=== PATIENT | female | born 1950 | race Asian ===

== ENCOUNTER 2016-11-17 02:18 | Emergency (ER) | payer OTHER ==
[~2016-11-17] VITALS: Ht 154.9 cm; Wt 75.0 kg
[2016-11-17 02:44] VITALS: Ht 154.9 cm; Wt 75.0 kg
[2016-11-17] MEDS ORDERED: FAMOTIDINE 20 MG INJ IV STA (03:38)
[2016-11-17] MEDS ORDERED: ONDANSETRON 4 MG INJ IV STA (03:38)
[2016-11-17] MEDS ORDERED: SOD CHLORIDE 0.9% 1,000 ML IV STA (03:38)
--- NOTE | 2016-11-17 03:44 | ERD ---
ER Documentation Chief Complaint Date/Time DATE: 11/17/16 TIME: 03:42 Chief Complaint abdominal pain/vomiting/diarrhea since last night HPI Patient is a 66-year-old female who presents with sudden onset, intermittent, cramping, migratory abdominal pain for the last 4 hours. She reports having approximately 5-6 episodes of vomiting and diarrhea. The vomit was nonbloody and nonbilious. She denies fever. Multiple family members have had similar symptoms over the last couple days. Patient denies recent travel. ROS All systems reviewed and are negative except as per history of present illness. Medications Home Meds Active Scripts Ondansetron Hcl* (Zofran*) 4 Mg Tablet, 4 MG PO Q8H Y for NAUSEA AND/OR VOMITING , #15 TAB Prov:ELLA DAVIES MD 11/17/16 Cephalexin* (Keflex*) 500 Mg Capsule, 500 MG PO QID for 7 Days, CAP Prov:ELLA DAVIES MD 11/17/16 Reported Medications Multivitamins* (Theragran*) 1 Tab Tab, 1 TAB PO DAILY, TAB 11/17/16 Acetaminophen* (Acetaminophen*) 500 MG Extra Strength Tablet, 500 MG PO Q4H Y for PAIN AND OR ELEVATED TEMP, TAB 11/17/16 Naproxen* (Naproxen*) 220 Mg Capsule, 220 MG PO BID, CAP 11/17/16 Simvastatin* (Zocor*) 40 Mg Tablet, 40 MG PO QHS, #30 TAB 11/17/16 Calcium Carbonate/Vitamin D3 (OYSTER SHELL 500 MG + VIT D TB) 1 Each Tablet, 1 EACH PO, TAB 11/17/16 Ergocalciferol (Vitamin D) Unknown Strength Capsule, PO DAILY, CAP 11/17/16 Aspirin* (Aspirin* Chew) 81 Mg Tab.chew, 81 MG PO DAILY, TAB.CHEW 11/17/16 Ranitidine Hcl* (Ranitidine Hcl*) 150 Mg Tablet, 150 MG PO HS, #30 TAB 11/17/16 Levothyroxine Sodium* (Levothyroxine Sodium*) Unknown Strength Tablet, PO BEFORE BREAKFAST, #30 TAB 11/17/16 Metformin Hcl* (Metformin Hcl* ER) 500 Mg Tab.sr.24h, 500 MG PO BID, #30 TAB 11/17/16 Insulin Glargine* (Lantus*) 100 Unit/Ml Soln, 30 UNIT SC DAILY, #1 VIAL 11/17/16 Allergies Allergies: Coded Allergies: No Known Drug Allergies (Verified Allergy, Unknown, 11/17/16) PMhx/Soc Past medical history: Diabetes mellitus Past surgical history: Hysterectomy, left shoulder Social history: Denies tobacco or alcohol History of Surgery: Yes (LT SHOULDER; HYSTERECTOMY) Anesthesia Reaction: No Hx Neurological Disorder: No Hx Respiratory Disorders: No Hx Cardiac Disorders: No Hx Psychiatric Problems: No Hx Miscellaneous Medical Probl: Yes (DIABETES) Hx Alcohol Use: No Hx Substance Use: No Hx Tobacco Use: No Smoking Status: Never smoker FmHx Family History: No coronary disease, No diabetes Physical Exam Vitals Vital Signs Date Time Temp Pulse Resp B/P Pulse Ox O2 Delivery O2 Flow Rate FiO2 11/17/16 05:03 91 20 132/70 98 Room Air 11/17/16 03:34 95 20 124/66 98 Room Air 11/17/16 02:44 98.0 98 20 124/63 98 Physical Exam Const: Alert, no acute distress Head: Atraumatic Eyes: Normal Conjunctiva, no pallor, no icterus ENT: Normal External Ears, Nose and Mouth. Tacky mucous membranes Neck: Full range of motion..~ No meningismus. Resp: Clear to auscultation bilaterally, no wheezes, no rales Cardio: Regular rate and rhythm, no murmurs Abd: Soft, non tender, non distended. No rebound or guarding Skin: No petechiae or rashes Back: No midline or flank tenderness Ext: No cyanosis, or edema Neur: Awake and alert Psych: Normal Mood and Affect Result Diagram: 11/17/16 0355 11/17/16 0355 Results 24 hrs Laboratory Tests Test 11/17/16 03:55 11/17/16 04:03 White Blood Count 20.610^3/ul Red Blood Count 4.3310^6/ul Hemoglobin 13.2g/dl Hematocrit 39.9% Mean Corpuscular Volume 92.1fl Mean Corpuscular Hemoglobin 30.5pg Mean Corpuscular Hemoglobin Concent 33.1g/dl Red Cell Distribution Width 12.5% Platelet Count 85904^3/UL Mean Platelet Volume 10.0fl Neutrophils % 89.1% Lymphocytes % 3.8% Monocytes % 6.0% Eosinophils % 0.7% Basophils % 0.1% Neutrophils # 18.310^3/ul Lymphocytes # 0.810^3/ul Monocytes # 1.210^3/ul Eosinophils # 0.110^3/ul Basophils # 0.010^3/ul Nucleated Red Blood Cells # 0.010^3/ul Sodium Level 149mmol/L Potassium Level 4.2mmol/L Chloride Level 105mmol/L Carbon Dioxide Level 28mmol/L Anion Gap 20 Blood Urea Nitrogen 17mg/dl Creatinine 0.84mg/dl Glucose Level 174mg/dl Calcium Level 9.3mg/dl Total Bilirubin 0.4mg/dl Direct Bilirubin 0.00mg/dl Indirect Bilirubin 0.4mg/dl Aspartate Amino Transf (AST/SGOT) 20IU/L Alanine Aminotransferase (ALT/SGPT) 39IU/L Alkaline Phosphatase 106IU/L Total Protein 7.9g/dl Albumin 4.2g/dl Globulin 3.70g/dl Albumin/Globulin Ratio 1.13 Lipase 95U/L Urine Color YELLOW Urine Clarity SLIGHTLY CLOUDY Urine pH 5.0 Urine Specific Darling 1.024 Urine Ketones NEGATIVEmg/dL Urine Nitrite NEGATIVEmg/dL Urine Bilirubin NEGATIVEmg/dL Urine Urobilinogen NEGATIVEmg/dL Urine Leukocyte Esterase 1+Destinee/ul Urine Microscopic RBC 1/HPF Urine Microscopic WBC 14/HPF Urine Squamous Epithelial Cells FEW/HPF Urine Bacteria FEW/HPF Urine Mucus FEW/HPF Urine Hemoglobin NEGATIVEmg/dL Urine Glucose 1+mg/dL Urine Total Protein 2+mg/dl Current Medications Medications (Trade) Dose Ordered Sig/Nicky Route PRN Reason Start Time Stop Time Status Last Admin Dose Admin Sodium Chloride (NS) 1,000 ml @ 1,000 mls/hr Q1H STAT IV 11/17/16 03:38 11/17/16 04:37 DC 11/17/16 04:05 Ondansetron HCl (Zofran Inj) 4 mg ONCE STAT IV 11/17/16 03:38 11/17/16 03:41 DC 11/17/16 04:05 Famotidine 20 mg 20 mg ONCE STAT IV 11/17/16 03:38 11/17/16 03:41 DC 11/17/16 04:05 Ceftriaxone Sodium (Rocephin) 50 ml @ 100 mls/hr ONCE ONCE IVPB 11/17/16 05:30 11/17/16 05:45 DC 11/17/16 05:15 Procedures/MDM MDM: Patient is a 66-year-old female who presents with vomiting and diarrhea with mild cramping and poorly localized abdominal discomfort for several hours. Multiple family members have similar symptoms. The patient is afebrile, has benign abdominal exam. She is given IV fluids, Pepcid, and Zofran, and her symptoms almost completely resolved. On reassessment, the patient did state that she is experiencing dysuria. Her urinalysis does have signs of UTI. Urine culture was sent, and the patient was given 1 g of ceftriaxone. She will be discharged with Keflex and Zofran. The patient did have significant leukocytosis, but did not have signs of sepsis. Repeat abdominal exam was completely benign and the patient stated that her abdominal pain had completely resolved. Her leukocytosis may be related to UTI and is nonspecific. The patient is a diabetic, but has no signs of significant hyperglycemia or DKA. Departure Diagnosis: Primary Impression: Gastroenteritis Additional Impression: Urinary tract infection Urinary tract infection type: site unspecified Hematuria presence: without hematuria Qualified Code: N39.0 - Urinary tract infection without hematuria, site unspecified Condition: ELLA Solorzano MD Nov 17, 2016 03:44
[2016-11-17 04:15] LABS: ADD SCAN DIFF NO
[2016-11-17 04:25] LABS: ADD UMIC YES; UR ASCORBIC ACID NEGATIVE (NEGATIVE); UR BACTERIA FEW /HPF (NONE SEEN); UR BILIRUBIN (Dip) NEGATIVE (NEGATIVE); UR BLOOD (Dip) NEGATIVE (NEGATIVE); UR CLARITY SLIGHTLY CLOUDY (CLEAR); UR COLOR YELLOW (YELLOW); UR GLUCOSE (Dip) 1+ mg/dL (NEGATIVE); UR KETONES (Dip) NEGATIVE (NEGATIVE); UR LEUKOCYTE ESTERASE (Dip) 1+ Leu/ul (NEGATIVE); UR MUCUS FEW /HPF (NONE SEEN); UR NITRITE (Dip) NEGATIVE (NEGATIVE); UR RBC 1 /HPF (0-5); UR SPECIFIC GRAVITY (Dip) 1.024 (1.003-1.030); UR SQUAMOUS EPITHELIAL CELL FEW /HPF (FEW); UR TOTAL PROTEIN (Dip) 2+ mg/dl (NEGATIVE); UR UROBILINOGEN (Dip) NEGATIVE (NEGATIVE)
[2016-11-17 04:37] LABS: ALBUMIN 4.2 g/dl (3.3-4.9); ALBUMIN/GLOBULIN RATIO 1.13; BILIRUBIN,INDIRECT 0.4 mg/dl (0-1.1); BILIRUBIN,TOTAL 0.4 mg/dl (0.2-1.3); CALCIUM 9.3 mg/dl (8.4-10.2); CREATININE 0.84 mg/dl (0.44-1.00); POTASSIUM 4.2 mmol/L (3.5-5.1); TOTAL PROTEIN 7.9 g/dl (6.1-8.1)
[2016-11-17 04:42] LABS: BASOPHILS % 0.1 % (0.0-2.0); EOSINOPHILS # 0.1 10^3/ul (0.0-0.5); EOSINOPHILS % 0.7 % (0.0-7.0); HEMATOCRIT 39.9 % (37.0-47.0); HEMOGLOBIN 13.2 g/dl (12.0-16.0); LYMPHOCYTES # 0.8 10^3/ul (0.8-2.9); LYMPHOCYTES % 3.8 % (15.0-51.0); MEAN CORPUSCULAR HEMOGLOBIN 30.5 pg (29.0-33.0); MEAN CORPUSCULAR HGB CONC 33.1 g/dl (32.0-37.0); MEAN CORPUSCULAR VOLUME 92.1 fl (82.0-101.0); MONOCYTE # 1.2 10^3/ul (0.3-0.9); NEUTROPHIL # 18.3 10^3/ul (1.6-7.5); NEUTROPHILS % 89.1 % (39.0-77.0); PLATELET COUNT 373 10^3/UL (140-415); RED BLOOD COUNT 4.33 10^6/ul (4.20-5.40); RED CELL DISTRIBUTION WIDTH 12.5 % (11.5-14.5); WHITE BLOOD COUNT 20.6 10^3/ul (4.8-10.8)
[2016-11-17 05:03] VITALS: BP 132/70; PULSE 91; RESP 20
[2016-11-17] MEDS ORDERED: ASPI81TA3 PO (05:20)
[2016-11-17] MEDS ORDERED: RANI150T5 PO (05:20)
[2016-11-17] MEDS ORDERED: MULTI PO (05:20)
[2016-11-17] MEDS ORDERED: CHOL400C PO (05:20)
[2016-11-17] MEDS ORDERED: CALC-277 PO (05:20)
[2016-11-17] MEDS ORDERED: SIMV40TA2 PO (05:20)
[2016-11-17] MEDS ORDERED: ACET-141 PO (05:20)
[2016-11-17] MEDS ORDERED: LANT3I SC (05:20)
[2016-11-17] MEDS ORDERED: METF500T3 PO (05:20)
[2016-11-17] MEDS ORDERED: NAPR220C PO (05:20)
[2016-11-17] MEDS ORDERED: LEVO25TA53 PO (05:20)
[2016-11-17] MEDS ORDERED: CEFTRIAXONE 1 GM/50 ML (PMX) 50 ML IVPB ONE (05:30)
[2016-11-17] MEDS ORDERED: CEPH-443 PO (05:31)
[2016-11-17] MEDS ORDERED: ONDA4TAB8 PO (05:31)
== END 2016-11-17 05:45 | disposition home or self-care (01) ==
LOC: E/R 02:18
DX: K52.9 Noninfective gastroenteritis and colitis, unspecified (principal); N39.0 Urinary tract infection, site not specified; E11.9 Type 2 diabetes mellitus without complications; R11.10 Vomiting, unspecified; Z79.4 Long term (current) use of insulin; Z79.82 Long term (current) use of aspirin; Z79.84 Long term (current) use of oral hypoglycemic drugs
CPT/HCPCS: 36415; 80053; 81001; 83690; 85025; 87086; 96361; 96374; 96375; 99284; J0696; J2405; J7030